=== PATIENT | male | born 2000 | race African-American/Black ===

== ENCOUNTER 2021-06-17 13:13 | Emergency (ER) | payer MEDICAID ==
[~2021-06-17] VITALS: Ht 182.9 cm; Wt 82.0 kg
[2021-06-17] MEDS ORDERED: LORAZEPAM 2MG/ML CPJ IM STA (13:35)
[2021-06-17] MEDS ORDERED: OLANZAPINE 10 MG/VIAL IM STA (13:35)
[2021-06-17 14:28] LABS: BASOPHILS % 0.7 % (0.0-2.0); EOSINOPHILS % 2.1 % (0.0-5.0); HEMATOCRIT. 49.2 % (42.0-52.0); HEMOGLOBIN. 16.2 g/dL (14.0-18.0); LYMPHOCYTES % 30.4 % (20.0-50.0); MEAN CORPUSCULAR HEMOGLOBIN 28.9 pg (28.0-32.0); MEAN CORPUSCULAR VOLUME 87.7 fL (80.0-94.0); MEAN PLATELET VOLUME 7.6 fl (7.4-10.4); MONOCYTES % 11.9 % (2.0-8.0); NEUTROPHILS % 54.9 % (40.0-76.0); PLATELET 295 x1000/uL (130-400); RED BLOOD CELL COUNT 5.61 mill/uL (4.7-6.1); RED CELL DISTRIBUTION WIDTH 13.1 % (11.6-14.6)
[2021-06-17 14:34] LABS: CHLORIDE 102 mEq/L (98-107)
[2021-06-17 14:40] LABS: ETHANOL BLOOD < 10 mg/dL
[2021-06-17 15:31] LABS: CLARITY URINE CLEAR (CLEAR); COLOR URINE YELLOW (YELLOW); KETONES URINE NEGATIVE (NEGATIVE); LEUKOCYTE ESTERASE URINE NEGATIVE (NEGATIVE); NITRITE URINE NEGATIVE (NEGATIVE); OCCULT BLOOD URINE NEGATIVE (NEGATIVE); PH URINE 7.5 (4.5-8.0); PROTEIN URINE NEGATIVE (NEGATIVE); SPECIFIC GRAVITY URINE 1.008 (1.005-1.030)
[2021-06-17 15:42] LABS: *AMPHETAMINES SCREEN URINE NEGATIVE (NEGATIVE); *BARBITURATES SCREEN URINE NEGATIVE (NEGATIVE); *BENZODIAZEPINES SCREEN URINE NEGATIVE (NEGATIVE); *COCAINE SCREEN URINE NEGATIVE (NEGATIVE); METHADONE URINE SCREEN NEGATIVE (NEGATIVE); OPIATES URINE SCREEN NEGATIVE (NEGATIVE); PHENCYCLIDINE URINE SCREEN NEGATIVE (NEGATIVE)
[2021-06-17 15:43] LABS: CANNABINOID URINE SCREEN PRESUMTIVE POSITIVE (NEGATIVE)
[2021-06-18] MEDS: OLANZAPINE 5MG TABLET PO SCH ×2 (12:28→21:10)
[2021-06-19] MEDS: OLANZAPINE 5MG TABLET PO SCH ×2 (09:28→21:37)
[2021-06-20 08:00] VITALS: BP 122/72
[2021-06-20] MEDS: OLANZAPINE 5MG TABLET PO SCH (09:19)
== END 2021-06-20 11:04 | disposition home or self-care (01) ==
LOC: ER 13:13
DX: F23 Brief psychotic disorder (principal); U07.1 COVID-19; F12.10 Cannabis abuse, uncomplicated; Z75.1 Person awaiting admission to adequate facility elsewhere
CPT/HCPCS: 36415; 80053; 80305; 80307; 80320; 80329; 81003; 84443; 85025; 93005; 96372; 99285; C9803; J2060; J3490; U0003; U0005; G0480